=== PATIENT | female | born 1985 | race Caucasian/White ===

== ENCOUNTER 2018-01-07 10:39 | Outpatient (CLI) | payer OTHER ==
[2015-12-23 05:33] VITALS: BP 109/67
== END 2018-01-07 10:40 ==
LOC: LAB 10:39
PROVIDERS: ATTEND Obstetrics & Gynecology
DX: R63.5 Abnormal weight gain (principal); Z13.29 Encounter for screening for other suspected endocrine disorder
CPT/HCPCS: 36415; 84439; 84443

== ENCOUNTER 2019-03-03 16:19 | Outpatient (CLI) | payer OTHER ==
[2015-12-23 05:33] VITALS: BP 109/67
== END 2019-03-03 16:24 | disposition home or self-care (01) ==
LOC: LAB 16:19
PROVIDERS: ATTEND Family Medicine
DX: Z13.29 Encounter for screening for other suspected endocrine disorder (principal)
CPT/HCPCS: 36415